=== PATIENT | female | born 1940 | race Two or more races ===

== ENCOUNTER → 2016-11-09 | Day surgery (SDC) | payer MEDICARE, OTHER ==
--- NOTE | 2016-11-04 12:37 | Pre-Procedure Note/Attestation ---
Pre-Procedure Note/Attestation Complete Prior to Procedure Planned Procedure: right Procedure Narrative: 1.CATARACT EXTRACTION WITH PHACO AND PC IOL IMPLANTATION, RIGHT EYE. 2.LIMBAL RELAXING INCISION (LRI), RIGHT EYE. Indications for Procedure Pre-Operative Diagnosis: 1. CATARACT, RIGHT EYE. 2.ASTIGMATISM, RIGHT EYE. Attestation I attest that I discussed the nature of the procedure; its benefits; risks and complications; and alternatives (and the risks and benefits of such alternatives ), prior to the procedure, with the patient (or the patient's legal apprenticeship training representative). I attest that, if there was a reasonable possibility of needing a blood transfusion, the patient (or the patient's legal apprenticeship training representative) was given the [place] Department of Health Services standardized written summary, pursuant to the [place] Blood Safety Act ([place] Health and Safety Code # 1645, as amended). I attest that I re-evaluated the patient just prior to the surgery and that there has been no change in the patient's H&P, except as documented below: GIUSEPPE MAGANA Nov 04, 2016 12:37
[2016-11-09] VITALS (8 sets, daily range): BP systolic 111–149; BP diastolic 51–65
[~2016-11-09] VITALS: Ht 162.6 cm; Wt 67.1 kg
[~2016-11-09] MED LIST: BSS 15ml BTL ONE; BSS 500ml btl ONE; Carbachol 0.01% Op Soln 1.5ml vial ONE; Dexamethasone 4mg/ml vial ONE; DiphenhydrAMINE 50mg/ml Inj IVP PRN; DiphenhydrAMINE 50mg/ml Inj ONE; EPINEPHrine 1mg/1ml Amp ONE; LR 1000ml 1,000 ML IVLG SCH; LR 1000ml ONE; Labetalol 5mg/ml 20ml vial IV PRN; Lidocaine 1% MPF 10mg/ml 5ml ONE; METOPROLOL SUCC25 MG ORAL; NS Irrig 1000ml ONE; OMEPRAZOLE40 M1 ORAL; Povidone-Iodine 5% opth solution ONE; Sodium Hyaluronate 10 mg/ml 0.85ml ONE; Sterile Water Irrig 1000ml IRRIG ONE; Triamcinolone 40mg/ml PF Vial ONE; acetaZOLAMIDE 125mg tab ORAL ONE; fentaNYL 100 mcg/2 mL IV ONE
--- NOTE | 2016-11-09 07:49 | Anethesia Preoperative Eval ---
Anesthesia Pre-op PMH/ROS General Date of Evaluation: Nov 09, 2016 Anesthesiologist: Alessandro ASA Score: ASA 2 Mallampati Score Class I : Soft palate, uvula, fauces, pillars visible Class II: Soft palate, uvula, fauces visible Class III: Soft palate, base of uvula visible Class IV: Only hard plate visible Mallampati Classification: Class II Surgeon: Estevan Diagnosis: Right cataract Surgical Procedure: Right cataract extraction with IOL Anesthesia History: none Family History: no anesthesia problems Allergies: Coded Allergies: EPINEPHRINE (Verified Adverse Reaction, Severe, Tachycardia/Shortness of breath , 11/09/16) Medications: see eMAR Past Medical History Cardiovascular: Denies: CAD, HTN, [place], arrhythmia, other, valve dz Pulmonary: Denies: COPD, ROSMERY, asthma, other Gastrointestinal/Genitourinary: Reports: GERD, Denies: CRI, ESRD, other Neurologic/Psychiatric: Denies: CVA, TIA, dementia, depression/anxiety, other Endocrine: Reports: hypothyroidism - h/o hyperthyroidism s/p trx, now hypo, Denies: DM, other, steroids HEENT: Denies: [place] (L), [place] (R), cataract (L), cataract (R), glaucoma, other Hematology/Immune: Denies: DVT, anemia, bleeding disorder, other Musculoskeletal/Integumentary: Denies: DDD, DJD, OA, RA, edema, other PSxH Narrative: ANTOINETTE, bilateral eye decompression sx Anesthesia Pre-op Phys. Exam Physician Exam see chart Constitutional: NAD Cardiovascular: RRR Respiratory: CTA Airway Exam Mallampati Score: Class II MO: full ROM: full Anesthesia Pre-op A/P Labs see chart Studies Pre-op Studies: EKG - sb Risk Assessment & Plan Assessment: ASA II Plan: MAC Status Change Before Surgery: No Pre-Antibiotics Drug: N/A SANDRA SARAVIA M.D. Nov 09, 2016 07:48
[2016-11-09] MEDS: Diclofenac Sod 0.1% Op Soln RIGHT EYE SCH (09:00)
[2016-11-09] MEDS: Tropicamide 1% Opth Soln RIGHT EYE SCH (09:00)
[2016-11-09] MEDS: Phenylephrine 10% Opth Soln 5ml RIGHT EYE SCH (09:00)
[2016-11-09] MEDS: Akten 3.5% 1ml Btl RIGHT EYE SCH (09:00)
[2016-11-09] MEDS: Gatifloxacin Opth Solution 0.5% RIGHT EYE SCH (09:00)
--- NOTE | 2016-11-09 09:36 | 48 Hour Post Anesthesia Eval ---
Post Anesthesia Evaluation Procedure: Right cataract extraction with IOL Date of Evaluation: Nov 09, 2016 Blood Pressure Systolic: 141 0: 59 Pulse Rate: 49 Respiratory Rate: 16 O2 Sat by Pulse Oximetry: 99 Airway: patent Nausea: No Vomiting: No Pain Intensity: 0 Hydration Status: adequate Cardiopulmonary Status: at baseline Mental Status/LOC: patient returned to baseline Post-Anesthesia Complications: 0 Follow-up care needed: ready to discharge SANDRA SARAVIA M.D. Nov 09, 2016 09:36
--- NOTE | 2016-11-09 09:36 | Immediate Post-Op Evaluation ---
Immediate Post-Op Evalulation Immediate Post-Op Evalulation Procedure: Right cataract extraction with IOL Date of Evaluation: Nov 09, 2016 Time of Evaluation: 11:07 IV Fluids: 300 Blood Products: 0 Estimated Blood Loss: 0 Urinary Output: 0 Blood Pressure Systolic: 140 Blood Pressure Diastolic: 60 Pulse Rate: 46 Respiratory Rate: 16 O2 Sat by Pulse Oximetry: 99 Temperature (Fahrenheit): 97.9 Pain Score (1-10): 0 Nausea: No Vomiting: No Complications 0 Patient Status: awake, reacts, patent, none Hydration Status: adequate Drug: N/A SANDRA SARAVIA M.D. Nov 09, 2016 09:36
--- NOTE | 2016-11-09 11:09 | Brief Operative Note ---
Immediate Post Operative Note Operative Note Chief Complaint: Blurry vision, right eye , difficulty driving and reading Pre-op Diagnosis: 1. CATARACT, RIGHT EYE. 2.ASTIGMATISM, RIGHT EYE. Procedure: 1- Cataract extraction with phaco and PC IOL implantation, right eye 2- Anterior vitrectomy, right eye Findings: other - Zonular dehiscince Surgeon: Giuseppe Barreto MD Senior Interior Designer: None Additional Surgeons: None Anesthesiologist: Dr. Anders Specimen: none Complications: yes Condition: stable Estimated Blood Loss: none Drains: none Implant(s) used?: Yes - Monofocal PC IOl implanted in the right eye GIUSEPPE BARRETO Nov 09, 2016 11:09
--- NOTE | 2016-11-10 02:27 | Discharge Summary ---
DATE OF ADMISSION: 11/09/2016 DATE OF DISCHARGE: 11/09/2016 REASON FOR HOSPITALIZATION: Cataract of the right eye. SURGERY PERFORMED: 1. Cataract extraction with phacoemulsification of posterior intraocular lens implantation in the right eye. 2. Anterior vitrectomy, right eye. CONDITION IN THE HOSPITAL: The patient tolerated the surgery without complications. DISCHARGE CONDITION: The patient was stable at discharge. DISCHARGE MEDICATIONS: 1. Prednisolone 1% q.i.d. right eye. 2. Vigamox eye drops one drop q.i.d. right eye. 3. Ilevro eye drops one drop daily in right eye. POSTOPERATIVE ORDERS: The patient has to rest at home. No bending. No lifting. No watching TV tonight. Postoperative Followup: The patient will be followed in my office tomorrow morning at 6:30 a.m. Constantin Barreto M.D. DR: YASMEEN JOB#: [id number] CC:
--- NOTE | 2016-11-10 02:47 | Operative Note - Dictated ---
FACILITY: [facility]. SURGEON: Constantin Barreto M.D. SCREEN STRETCHER: None. ANESTHESIOLOGIST: Dr. Anders. ANESTHESIA: Monitored anesthesia care (MAC). PREOPERATIVE DIAGNOSES: 1. Cataract of the right eye. 2. Astigmatism of the right eye. POSTOPERATIVE DIAGNOSES: 1. Cataract of the right eye. 2. Astigmatism of the right eye. SURGERY PERFORMED: 1. Cataract extraction with phacoemulsification and posterior chamber intraocular lens implantation in the right eye. 2. Limbal relaxing incision (LRI) in the right eye. 3. Anterior vitrectomy in the right eye. INDICATION FOR SURGERY: The patient is a 76-year-old lady with history of hypertension and hypercholesterolemia. She has had appendectomy and hysterectomy in the past. She does not have allergies to any medications. She is a smoker. She is complaining of blurred vision in the right eye. On examination of the right eye, the cornea is clear. Anterior chamber is clean and quiet. The pupillary reflex is normal. There is no RAPD. There is 6+ nuclear sclerosis and 3+ cortical cataract. Funduscopy shows macular degeneration in the right eye. Periphery retina is flat. Optic disc is normal. To improve her vision in the right eye, the cataract has to be removed and posterior chamber intraocular lens has to be implanted. INFORMED CONSENT: The nature of the surgery, risks, benefits, alternatives, and potential complications were explained all in detail to the patient. The potential complications including, but not limited to bleeding, infection, posterior capsular rupture, lens subluxation, flat anterior chamber, iris prolapse, uveitis, corneal edema, macular edema, endophthalmitis, retinal detachment, loss of the vision, and even loss of the eye were all explained in detail to the patient. The patient voiced understanding and accepted all the complications. The alternatives including accommodating lenses, multifocal lens, toric lens, and conventional cataract surgery with limbal relaxing incision for treatment of astigmatism were all explained in detail. The patient voiced understanding. The patient elected to have conventional cataract surgery with limbal relaxing incision for treatment of her astigmatism in the right eye. Then, she signed the consent form, which is in the chart. DESCRIPTION OF SURGERY AND FINDINGS: Following that, the patient was taken to the operation room in a stable condition. Lidocaine gel, Akten 3.5% were applied to the conjunctiva of the right eye. IV sedation was given by the anesthesiologist, Dr. Anders. After adequate anesthesia and sedation has been achieved, the right eye was prepped and draped in a sterile fashion for intraocular surgery. Following that, the speculum was placed in the right eye. Before the patient was taken to the operation room, the cornea was marked at 180 and 90 meridian. In the operation room, using a corneal marker and marking pen, the steep meridian of the cornea was marked. Following that, using a katya knife, two paralleling incisions were placed on the steep meridian of the cornea and the astigmatism was treated. Following that using a Super Sharp knife, a clear corneal side port was created. Following that, 1% lidocaine without preservative (MPF) was injected into the anterior chamber. Viscoelastic agent, Healon was injected into the anterior chamber. Following that, a clear corneal temporal keratotomy was performed with a 2.8 mm keratome. Following that, viscoelastic agent was injected into the anterior chamber again. Following that, the Vision Blue was injected under the viscoelastic agent to stain the anterior capsule. Following that, a clear fresh viscoelastic agent was injected into the anterior chamber again. Under the viscoelastic agent, an anterior capsulotomy was performed in the fashion of capsulorrhexis beautifully. Following that, the viscoelastic agent was removed from the anterior chamber. Following that, using the balanced salt solution, hydrodissection and hydrodelineation was performed and the nucleus was freed in toto. Following that, viscoelastic agent was injected into the anterior chamber again to protect the endothelium of the cornea. Following that, using the phacoemulsification machine in the fashion of horizontal chop, the nucleus was removed in toto. Following that, the cortical material was removed from the capsular bag and the capsular bag was polished. Following that, the capsular bag was filled with viscoelastic agent. Following that, a +15 diopter ZCB00 foldable PC IOL was injected into the capsular bag. Using a Sinskey hook, the lens was manipulated. Using the manipulation of the lens, I noted a range. The capsular bag has a lens that is not moving properly. Therefore, I decided to take the intraocular lens out and to change that to IOL. So, the lens was manipulated and it was extracted from the anterior chamber. Following that, anterior vitrectomy was performed and the anterior chamber was cleaned from the vitreous macula. Following that, a flat 16 and [id number] was injected into the posterior chamber on top of the anterior capsule. Then, the haptic was captured with the capsulorrhexis beautifully. Following that, the viscoelastic agent was removed from the anterior posterior part of the lens. Following that, the wound was checked for leakage and there was some leakage, therefore, with 10-0 nylon was sutured. The stitch was trimmed and buried into the corneal tissue. Following that, the patient's was injected under the capsule. The patient tolerated the surgery without complication. At the end of the surgery, Vigamox eyedrops were applied to conjunctiva of the right side. Following that, the eye was patched with an eye pack and clear sterile fenestrated shield. Following that, the patient was transferred to the recovery room. In the recovery room, 125 mg Diamox was given by mouth stat. Postoperative orders and directions were given to the patient. The patient will be discharged home upon stabilization. The patient will be followed in my office tomorrow morning at 9:00 after discharging. Constantin Barreto M.D. DR: YASMEEN JOB#: [id number] CC:
== END | disposition home or self-care (01) ==
LOC: SUR 08:11
DX: H25.11 Age-related nuclear cataract, right eye (principal); H25.011 Cortical age-related cataract, right eye; H52.201 Unspecified astigmatism, right eye; H35.30 Unspecified macular degeneration; I10 Essential (primary) hypertension; K21.9 Gastro-esophageal reflux disease without esophagitis; F17.200 Nicotine dependence, unspecified, uncomplicated; Z88.8 Allergy status to other drugs, medicaments and biological substances; Z90.49 Acquired absence of other specified parts of digestive tract; Z90.710 Acquired absence of both cervix and uterus
CPT/HCPCS: 66984; 66999; J0171; J1100; J1200; J3010; J3300; J7120; V2632; 94003; 94150

== ENCOUNTER → 2016-11-16 | Day surgery (SDC) | payer MEDICARE, OTHER ==
--- NOTE | 2016-11-12 10:44 | Pre-Procedure Note/Attestation ---
Pre-Procedure Note/Attestation Complete Prior to Procedure Planned Procedure: left Procedure Narrative: 1.CATARACT EXTRACTION WITH PHACO AND PC IOL IMPLANTATION, LEFT EYE. 2.LIMBAL RELAXING INCISION (LRI), LEFT EYE. Indications for Procedure Pre-Operative Diagnosis: 1. CATARACT, LEFT EYE. 2.ASTIGMATISM, LEFT EYE. Attestation I attest that I discussed the nature of the procedure; its benefits; risks and complications; and alternatives (and the risks and benefits of such alternatives ), prior to the procedure, with the patient (or the patient's legal publications sales representative). I attest that, if there was a reasonable possibility of needing a blood transfusion, the patient (or the patient's legal publications sales representative) was given the [place] Department of Health Services standardized written summary, pursuant to the [place] Blood Safety Act ([place] Health and Safety Code # 1645, as amended). I attest that I re-evaluated the patient just prior to the surgery and that there has been no change in the patient's H&P, except as documented below: GIUSEPPE MAGANA Nov 12, 2016 10:44
[2016-11-16] VITALS (11 sets, daily range): BP systolic 116–151; BP diastolic 57–72
[~2016-11-16] VITALS: Ht 162.6 cm; Wt 70.3 kg
[~2016-11-16] MED LIST changes: +Akten 3.5% 1ml Btl ONE; +Diclofenac Sod 0.1% Op Soln ONE; -DiphenhydrAMINE 50mg/ml Inj IVP PRN; -DiphenhydrAMINE 50mg/ml Inj ONE; -EPINEPHrine 1mg/1ml Amp ONE; +Gatifloxacin Opth Solution 0.5% ONE; -Labetalol 5mg/ml 20ml vial IV PRN; +Maxitrol Opth Oint 3.5gm ONE; +Midazolam 2mg/2ml Inj ONE; +Phenylephrine 10% Opth Soln 5ml ONE; +Propofol 10mg/ml 20ml IV ONE; +Tetracaine 0.5% Opth Soln ONE; -Triamcinolone 40mg/ml PF Vial ONE; +Tropicamide 1% Opth Soln ONE; +fentaNYL 100 mcg/2 mL IV PRN
[2016-11-16] MEDS: Tropicamide 1% Opth Soln LEFT EYE SCH ×3 (07:38→07:52)
[2016-11-16] MEDS: Gatifloxacin Opth Solution 0.5% LEFT EYE SCH ×3 (07:39→07:52)
[2016-11-16] MEDS: Akten 3.5% 1ml Btl LEFT EYE SCH ×3 (07:39→07:53)
[2016-11-16] MEDS: Phenylephrine 10% Opth Soln 5ml LEFT EYE SCH ×3 (07:39→07:52)
[2016-11-16] MEDS: Diclofenac Sod 0.1% Op Soln LEFT EYE SCH ×3 (07:39→07:52)
--- NOTE | 2016-11-16 09:31 | Anethesia Preoperative Eval ---
Anesthesia Pre-op PMH/ROS General Date of Evaluation: Nov 16, 2016 Time of Evaluation: 08:59 Anesthesiologist: Paulo ASA Score: ASA 2 Mallampati Score Class I : Soft palate, uvula, fauces, pillars visible Class II: Soft palate, uvula, fauces visible Class III: Soft palate, base of uvula visible Class IV: Only hard plate visible Mallampati Classification: Class II Surgeon: Estevan Diagnosis: L eye cataract Surgical Procedure: L eye cataract extraction with IOL Anesthesia History: none Family History: no anesthesia problems Allergies: Coded Allergies: EPINEPHRINE (Verified Adverse Reaction, Severe, Tachycardia/Shortness of breath , 11/09/16) Past Medical History Cardiovascular: Reports: HTN - mild, controlled, Denies: CAD, [place], arrhythmia, other, valve dz Pulmonary: Denies: COPD, ROSMERY, asthma, other Gastrointestinal/Genitourinary: Reports: GERD - mild, Denies: CRI, ESRD, other Neurologic/Psychiatric: Denies: CVA, TIA, dementia, depression/anxiety, other Endocrine: Denies: DM, hypothyroidism, other, steroids HEENT: Reports: cataract (L), cataract (R) Hematology/Immune: Denies: DVT, anemia, bleeding disorder, other Musculoskeletal/Integumentary: 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 Exam Physician Exam Last Vital Signs Date Time Temp Pulse Resp B/P Pulse Ox O2 Delivery O2 Flow Rate FiO2 11/16/16 07:41 97.8 52 18 123/60 99 Room Air Constitutional: NAD Neurologic: CN 2-12 intact Cardiovascular: RRR Respiratory: CTA Gastrointestinal: S/NT/ND Airway Exam Mallampati Score: Class II MO: full Neck: stiff ROM: full Teeth: intact Dentures: no lower, no upper Anesthesia Pre-op A/P Labs see chart Studies Pre-op Studies: EKG - NSR Risk Assessment & Plan Assessment: ASA 2 Plan: MAC Status Change Before Surgery: No Pre-Antibiotics Drug: none GEETA MARTIN M.D. Nov 16, 2016 09:31
--- NOTE | 2016-11-16 09:56 | Immediate Post-Op Evaluation ---
Immediate Post-Op Evalulation Immediate Post-Op Evalulation Procedure: L eye cataract extraction with IOL Date of Evaluation: Nov 16, 2016 Time of Evaluation: 09:55 IV Fluids: 20 Blood Products: none Estimated Blood Loss: none Urinary Output: none Blood Pressure Systolic: 146 Blood Pressure Diastolic: 58 Pulse Rate: 58 Respiratory Rate: 20 O2 Sat by Pulse Oximetry: 99 Temperature (Fahrenheit): 97.5 Pain Score (1-10): 1 Nausea: No Vomiting: No Complications none Patient Status: awake, patent, none Hydration Status: adequate Drug: none GEETA MARTIN M.D. Nov 16, 2016 09:56
--- NOTE | 2016-11-16 09:57 | Brief Operative Note ---
Immediate Post Operative Note Operative Note Chief Complaint: Blurry vision, left eye, difficulty driving and reading Pre-op Diagnosis: 1. CATARACT, LEFT EYE. 2.ASTIGMATISM, LEFT EYE. Procedure: 1- Cataract extraction with phaco and PC Iol implantation , left eye 2- Limbal relaxing incision ( LRI ), left eye Post-op Diagnosis: same as pre-op Surgeon: Giuseppe Barreto MD Mining Consultant: None Additional Surgeons: None Anesthesiologist: Dr. Bates Anesthesia: MAC Specimen: none Complications: none Condition: stable Estimated Blood Loss: none Drains: none Implant(s) used?: Yes - Monofocal PC IOL implanted in the left eye without complication GIUSEPPE BARRETO Nov 16, 2016 09:57
--- NOTE | 2016-11-16 12:11 | 48 Hour Post Anesthesia Eval ---
Post Anesthesia Evaluation Procedure: L eye cataract extraction with IOL Date of Evaluation: Nov 16, 2016 Time of Evaluation: 12:09 Blood Pressure Systolic: 116 0: 72 Pulse Rate: 62 Respiratory Rate: 18 Temperature (Fahrenheit): 97.6 O2 Sat by Pulse Oximetry: 99 Airway: patent Nausea: No Vomiting: No Pain Intensity: 1 Hydration Status: adequate Cardiopulmonary Status: stable Mental Status/LOC: patient returned to baseline Follow-up Care/Observations: n/a Post-Anesthesia Complications: none Follow-up care needed: ready to discharge GEETA MARTIN M.D. Nov 16, 2016 12:11
--- NOTE | 2016-11-16 16:59 | Operative Note - Dictated ---
DATE OF OPERATION: 11/16/2016 FACILITY: [facility]. SURGEON: Constantin Barreto M.D. CENTERLESS GRINDER SET UP OPERATOR: None. ANESTHESIOLOGIST: Toney Bates M.D. ANESTHESIA: Monitored anesthesia care (MAC). PREOPERATIVE DIAGNOSES: 1. Cataract of the left eye. 2. Astigmatism of the left eye. POSTOPERATIVE DIAGNOSES: 1. Cataract of the left eye. 2. Astigmatism of the left eye. SURGERY PERFORMED: 1. Cataract extraction with phacoemulsification and posterior chamber intraocular lens implantation in the left eye. 2. Limbal relaxing incision (LRI) in the left eye. INDICATION FOR SURGERY: The patient is a 76-year-old with history of hypertension and hypercholesterolemia. She has had appendectomy and hysterectomy in the past. She is not allergic to any medication. She is a smoker and drinker as well. She is complaining of blurry vision in the left eye. The patient has had a surgery in the right eye last week. She is happy with the result. The examination of the left eye, the cornea is clear. Anterior chamber is clean and quiet. The pupillary reflex is normal. There is no RAPD. There is 5+ nuclear sclerosis and 2+ cortical cataract. The funduscopy showed macular degeneration in the left eye. The periphery retina is flat. Optic disc is normal. To improve her vision in the left eye, the cataract has to be removed and the posterior chamber intraocular lens has to be implanted. INFORMED CONSENT: The nature of the surgery, risks, benefits, alternatives, and potential complications were explained all in detail to the patient. The potential complications including, but not limited to bleeding, infection, posterior capsular rupture, lens subluxation, flat anterior chamber, iris prolapse, uveitis, corneal edema, macular edema, endophthalmitis, retinal detachment, loss of vision, and even loss of the eye were all explained in detail to the patient. The patient voiced understanding and accepted all the complications. The alternatives including accommodating lenses, multifocal lenses, toric lens, and conventional cataract surgery with limbal relaxing incision for treatment of astigmatism were all explained in detail to the patient, the patient voiced understanding. The patient elected to have combination of cataract surgery with limbal relaxing incision for treatment of astigmatism in the left eye. Then, she signed the consent form, which is in the chart. DESCRIPTION OF SURGERY AND FINDINGS: Following that, the patient was taken to the operation room in a stable condition. Lidocaine gel Akten 3.5% were applied to the conjunctiva of the left eye. Anesthesia was given by the anesthesiologist, Dr. Bates. After adequate anesthesia and sedation had been achieved, the left eye was prepped and draped in sterile fashion for intraocular surgery. Following that, a speculum was placed in the left eye. Before the patient was taken to the operation room, the cornea was marked at 180 and 90 meridian. In the operation room, using a corneal marker and marking pen, the steep meridian of the cornea was marked. Following that, using a katya knife, two parallel incisions were placed on the steep meridian of the cornea and astigmatism was treated. Following that, using a Super Sharp knife, a clear corneal side port was created. Following that, 1% lidocaine without preservative (MPF) was injected into the anterior chamber. The viscoelastic agent, Healon was injected into the anterior chamber. Following that, a clear corneal temporal keratotomy was performed with 2.8 mm keratome. Following that, viscoelastic agent was injected into the anterior chamber again. Following that, vision blue was injected under the viscoelastic agent to stain the anterior capsule. Following that, a clear fresh viscoelastic was injected into the anterior chamber again. Under the viscoelastic agent, an anterior capsulotomy was performed in the fashion of capsulorrhexis beautifully. Following that, the viscoelastic agent was removed from the anterior chamber. Following that, using a balanced salt solution, hydrodissection and hydrodelineation was performed and the nucleus was freed in toto. Following that, the viscoelastic agent was injected into the anterior chamber again to protect the endothelium of the cornea. Following that, using phacoemulsification machine in the fashion of horizontal chop, the nucleus was removed in toto. Following that, the cortical material was removed from the capsular bag and the capsular bag was polished. Following that, the capsular bag was filled with viscoelastic agent. Following that, a +16 diopter ZCB00 foldable PC IOL with serial number [id number] was injected into the capsular bag. Using a Sinskey hook, the lens was manipulated using manipulation of the lens. Following that, the viscoelastic was removed from the anterior posterior part of the lens and the anterior chamber was filled with balanced salt solution. The wound was hydrated with balanced salt solution. The wound was checked for leakage, there was no leakage. At the end of surgery, Vigamox eye drops were applied to the conjunctiva of the left eye. The patient tolerated the surgery without complications. At the end of the surgery, the eye was patched with a clear sterile fenestrated shield. Following that, the patient was transferred to the recovery room. In the recovery room, 125 mg Diamox was given by mouth stat. Postoperative orders and directions were given to the patient. The patient will be discharged home upon stabilization. The patient will be followed in my office tomorrow morning at 6:30 a.m. Constantin Barreto M.D. DR: Shalini JOB#: [id number] CC:
--- NOTE | 2016-11-16 16:59 | Discharge Summary ---
DATE OF ADMISSION: 11/16/2016 DATE OF DISCHARGE: 11/16/2016 REASON FOR HOSPITALIZATION: Cataract of the left eye. SURGERY PERFORMED: 1. Cataract extraction with phacoemulsification and posterior chamber intraocular lens implantation in the left eye. 2. Limbal relaxing incision (LRI) in the left eye. CONDITION IN THE HOSPITAL: The patient tolerated the surgery with minor complications. DISCHARGE CONDITION: The patient was stable at discharge. DISCHARGE MEDICATIONS: 1. Prednisolone 1% one drop q.i.d., left eye. 2. Vigamox eye drops one drop q.i.d., left eye. 3. one drop q.i.d., left eye. POSTOPERATIVE ORDERS: The patient has to rest at home. No bending. No lifting. No watching TV tonight. Postoperative Followup: The patient will be followed in my office tomorrow at 6:30 in the morning. Constantin Barreto M.D. DR: Shalini JOB#: [id number] CC:
--- NOTE | 2016-11-17 09:19 | Pre-op HX & Phy Repo 2 SIG ---
DATE OF ADMISSION: 11/16/2016 PRESURGICAL INTERNAL MEDICINE HISTORY AND PHYSICAL REASON FOR EVALUATION: I was asked by Dr. Constantin Barreto due to see this 76-year-old female, who is going for elective surgery on the left eye. The patient has a cataract left eye. Please see full History and Physical by Dr. Constantin Barreto. The patient was examined and chart was reviewed. The patient is a 76-year-old female, who going for elective surgery. PAST MEDICAL HISTORY/REVIEW OF SYSTEMS: Remarkable for hypertension. Hyperacidity gastritis. History of diabetes denies. Denies history of stroke or seizures. No history of respiratory problem, asthma or bronchitis. Denies history of heart attack, chest pain or palpitation. No history of anemia. No renal problems. No dysuria. Denies history of thyroid problem. No hepatitis. The patient has a history of macular degeneration. PAST SURGICAL HISTORY: Hysterectomy and appendectomy. MEDICATIONS: Current medication include metoprolol 25 mg, omeprazole 20 mg daily, vitamin D, fish oil, multivitamin supplement and calcium supplements. ALLERGIES: The patient has adverse reaction to epinephrine, increase blood pressure. Otherwise, no allergic reaction to the medication or food. HABITS: The patient smoked for about 30 years and stopped two years ago. Denies alcohol or street drug use. FAMILY HISTORY: Father has diabetes mellitus. Mother of old age from pneumonia. PHYSICAL EXAMINATION: GENERAL: Alert well-developed, well-nourished female, in her 70s in no acute distress. VITAL SIGNS: Blood pressure 123/60, temperature 97.8 degrees, pulse 52 and regular, respirations 18, and O2 saturation 99% on room air. SKIN: No visible rashes. No ulcers. No jaundice. No diaphoresis. LYMPHATICS: Lymph nodes not enlarged. HEENT: Head is normocephalic. Ears, clear. Eyes, full description per Dr. Constantin Barreto. Mouth, clear and moist. No dentures. NECK: Supple. No jugular vein distention. Carotids artery +2. Trachea midline. CHEST: No deformity or asymmetry. LUNGS: Clear. No rales or rhonchi. HEART: Sinus. No ectopy. No murmur. ABDOMEN: Soft. No palpable mass. No rebound. Liver and spleen not enlarged. EXTREMITIES: No peripheral edema. No varicose veins. No deformity. No calf tenderness. GENITOURINARY TRACT: CVA nontender. No dysuria. NEUROLOGIC: No tremor. No nystagmus. LABORATORY AND DIAGNOSTIC DATA: ECG from hospital sinus 93 per minute, left axis deviation. The patient did not eat or drink from 6 p.m. yesterday. Laboratory data pending. IMPRESSION: 1. Cataract, left eye. 2. Hypertension, controlled. 3. Gastroesophageal reflux disease and gastritis. 4. Macular degeneration. PLAN: Cataract extraction, left eye with intraocular lens implant per Dr. Constantin Barreto. CONCLUSION: The patient's vital signs stable. The patient has macular degeneration, so did need from last night. The patient's condition optimized for surgery. Thank you very much, Dr. Barreto, for privilege to participate in presurgical care of this interesting patient. Jenny Barr M.D. DR: Nikki JOB#: [id number] CC:
== END | disposition home or self-care (01) ==
LOC: SUR 06:57
DX: H25.12 Age-related nuclear cataract, left eye (principal); H25.012 Cortical age-related cataract, left eye; H52.202 Unspecified astigmatism, left eye; H35.30 Unspecified macular degeneration; I10 Essential (primary) hypertension; K21.9 Gastro-esophageal reflux disease without esophagitis; K29.60 Other gastritis without bleeding; E78.00 Pure hypercholesterolemia, unspecified; M19.90 Unspecified osteoarthritis, unspecified site; Z87.891 Personal history of nicotine dependence; Z88.8 Allergy status to other drugs, medicaments and biological substances; Z90.710 Acquired absence of both cervix and uterus; Z90.49 Acquired absence of other specified parts of digestive tract
CPT/HCPCS: 66984; 66999; J1100; J2250; J2704; J3010; J7120; V2632; 94003; 94150